=== PATIENT | female | born 1950 | race Caucasian/White ===

== ENCOUNTER 2022-01-19 18:00 | Emergency (ER) | payer MEDICARE ==
[~2022-01-19] VITALS: Ht 154.9 cm; Wt 75.5 kg
[2022-01-19 18:07] VITALS: BP 145/89
== END 2022-01-19 20:49 | disposition home or self-care (01) ==
LOC: ER 18:00
DX: J20.9 Acute bronchitis, unspecified (principal); Z88.2 Allergy status to sulfonamides
CPT/HCPCS: 99282

== ENCOUNTER 2025-01-24 15:58 | Emergency (ER) | payer MEDICARE ==
[~2025-01-24] VITALS: Ht 152.4 cm; Wt 74.5 kg
[2025-01-24 16:02] VITALS: BP 147/82; PULSE 116; RESP 18; TEMP 97.6; O2SAT 96
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
== END 2025-01-24 18:22 | disposition home or self-care (01) ==
LOC: ER 15:59
DX: M54.2 Cervicalgia (principal); R10.9 Unspecified abdominal pain; M19.90 Unspecified osteoarthritis, unspecified site; Z88.2 Allergy status to sulfonamides; V49.40XA Driver injured in collision with unspecified motor vehicles in traffic accident, initial encounter; Y93.89 Activity, other specified; Y92.89 Other specified places as the place of occurrence of the external cause; Y99.8 Other external cause status
CPT/HCPCS: 99281; 99282